=== PATIENT | female | born 2000 | race Caucasian/White ===

== ENCOUNTER 2023-03-21 04:15 | Observation (INO) | payer OTHER ==
[~2023-03-21] VITALS: Ht 154.9 cm; Wt 79.4 kg
[2023-03-21 04:19] VITALS: BP 108/63
[2023-03-21] MEDS ORDERED: PNV1TABL5 PO (05:00)
[2023-03-21 05:23] LABS: APPEARANCE,URINE CLOUDY (CLEAR); BILIRUBIN,URINE NEGATIVE (NEGATIVE); BLOOD, URINE 3+ (NEGATIVE); COLOR,URINE YELLOW (YELLOW); LEUKOCYTE ESTERASE ,URINE 2+ (NEGATIVE); NITRITE, URINE POSITIVE (NEGATIVE); PH,URINE 6.5 (5.0-9.0); UGLUCOSE NEGATIVE (NEGATIVE)
[2023-03-21 05:30] LABS: RBC,URINE 0-5 /HPF (0-5)
[2023-03-21] MEDS ORDERED: cefTRIAXone 1,000 MG in LIDOCAINE MPF 1% 2.1 ML IM ONE ×2 (06:00→06:10)
[2023-03-21] MEDS ORDERED: cefTRIAXone 1,000 MG VIAL ONE (06:10)
[2023-03-21] MEDS ORDERED: LIDOCAINE 1% 500 MG/50 ML VIAL ONE (06:12)
== END 2023-03-21 06:35 | disposition home or self-care (01) ==
LOC: MLD 04:15
PROVIDERS: ADMIT Obstetrics & Gynecology; ATTEND Obstetrics & Gynecology
DX: O23.42 Unspecified infection of urinary tract in pregnancy, second trimester (principal); Z20.822 Contact with and (suspected) exposure to COVID-19; O26.892 Other specified pregnancy related conditions, second trimester; R10.9 Unspecified abdominal pain; Z3A.19 19 weeks gestation of pregnancy
CPT/HCPCS: 81001; 87086; 87426; 96372; G0378; J0696; J2001

== ENCOUNTER 2023-06-22 02:38 | Emergency (ER) | payer OTHER ==
[~2023-06-22] VITALS: Ht 154.9 cm; Wt 77.1 kg
[~2023-06-22 02:38] MED LIST: PNV1TABL5 PO
[2023-06-22 02:45] VITALS: BP 110/70; PULSE 102; RESP 17; TEMP 97.8; O2SAT 98
--- NOTE | 2023-06-22 02:48 | NUR ---
TO BED AMBULATORY
--- NOTE | 2023-06-22 03:25 | NUR ---
Patient being evaluated by physician at bedside.
[2023-06-22 03:41] LABS: APPEARANCE,URINE SL CLOUDY (CLEAR); BILIRUBIN,URINE 1+ (NEGATIVE); BLOOD, URINE TRACE-I (NEGATIVE); COLOR,URINE YELLOW (YELLOW); LEUKOCYTE ESTERASE ,URINE 1+ (NEGATIVE); NITRITE, URINE NEGATIVE (NEGATIVE); PH,URINE 6.5 (5.0-9.0); UGLUCOSE NEGATIVE (NEGATIVE)
[2023-06-22 03:41] LABS: BASOPHILS % (AUTO) 0.4 % (0.0-2.0); EOSINOPHILS # (AUTO) 0.2 K/uL (0-0.4); EOSINOPHILS % (AUTO) 2.2 % (0.0-4.0); HEMOGLOBIN 11.4 g/dL (12.0-16.0); LYMPHOCYTES # (AUTO) 2.7 K/uL (2.5-16.5); LYMPHOCYTES % (AUTO) 36.2 % (20.5-51.1); MEAN CORPUSCULAR HEMOGLOBIN 31 pg (27-31); MEAN CORPUSCULAR HGB CONC 35 g/dL (33-37); MEAN CORPUSCULAR VOLUME 89.5 fL (80-94); MONOCYTES # (AUTO) 0.4 K/uL (0.8-1.0); NEUTROPHILS # (AUTO) 4.1 K/uL (1.8-7.7); NEUTROPHILS % (AUTO) 55.2 % (42.2-75.2); PLATELET COUNT (AUTO) 224 K/uL (140-450); RED BLOOD CELL COUNT(AUTO) 3.68 MIL/uL (4.20-5.40); RED CELL DISTRIBUTION WIDTH 12.8 % (11.6-13.7); WHITE BLOOD COUNT (AUTO) 7.3 K/uL (4.8-10.8)
[2023-06-22 03:47] LABS: RBC,URINE 0-5 /HPF (0-5)
[2023-06-22 03:55] LABS: ALBUMIN 2.1 g/dL (3.4-5.0); CARBON DIOXIDE 22.3 mmol/L (21-32); CREATININE 0.4 mg/dL (0.6-1.3); MAGNESIUM 1.4 mg/dL (1.8-2.4); PHOSPHORUS 3.5 mg/dL (2.5-4.9); POTASSIUM 3.3 mmol/L (3.5-5.1); TOTAL BILIRUBIN 0.5 mg/dL (0.0-1.0)
[2023-06-22] MEDS ORDERED: CETI10SG1 PO (05:50)
[2023-06-22] MEDS ORDERED: CEPH-588 PO (05:50)
[2023-06-22 05:58] VITALS: BP 110/70; PULSE 102; RESP 17; TEMP 97.8; O2SAT 98
--- NOTE | 2023-06-22 05:58 | NUR ---
Patient discharged with v/s stable. Written and verbal after care instructions given and explained. Patient alert, oriented and verbalized understanding of instructions. Ambulatory with steady gait. All questions addressed prior to discharge. ID band removed. Patient advised to follow up with PMD. Rx of KEFLEX, ZYRTEC given. Patient educated on indication of medication including possible reaction and side effects. Opportunity to ask questions provided and answered.
== END 2023-06-22 05:58 | disposition home or self-care (01) ==
LOC: MED 02:38
DX: O98.913 Unspecified maternal infectious and parasitic disease complicating pregnancy, third trimester (principal); O26.893 Other specified pregnancy related conditions, third trimester; L29.9 Pruritus, unspecified; R82.71 Bacteriuria; Z3A.32 32 weeks gestation of pregnancy; Z79.899 Other long term (current) drug therapy
CPT/HCPCS: 36415; 80053; 81001; 81025; 83735; 84100; 85025; 87086; 99283